=== PATIENT | male | born 1980 | race Caucasian/White ===

== ENCOUNTER 2020-05-21 01:57 | Emergency (ER) | payer MEDICAID ==
[~2020-05-21] VITALS: Ht 172.7 cm; Wt 90.7 kg
[2020-05-21 02:05] VITALS: BP 161/93
[2020-05-21] MEDS ORDERED: cefTRIAXone 250 MG in LIDOCAINE MPF 1% 0.9 ML IM ONE (02:35)
[2020-05-21] MEDS ORDERED: AZITHROMYCIN 250 MG TAB PO ONE (02:35)
[2020-05-21] MEDS ORDERED: LIDOCAINE MPF 1% 5 ML ONE (02:36)
[2020-05-21] MEDS ORDERED: cefTRIAXone 250 MG VIAL ONE (02:36)
[2020-05-21 03:00] VITALS: BP 161/93
[2020-05-23 17:22] LABS: CHLAMYDIA TRACHOMATIS AMP DNA POSITIVE (NEGATIVE)
== END 2020-05-21 03:00 | disposition home or self-care (01) ==
LOC: MED 01:57
DX: R30.0 Dysuria (principal); F17.210 Nicotine dependence, cigarettes, uncomplicated
CPT/HCPCS: 36415; 81002; 87086; 87491; 96372; 99283; J0696; J2001